=== PATIENT | male | born 1955 | race Caucasian/White ===

== ENCOUNTER 2017-08-21 08:30 | Day surgery (SDC) | payer BC ==
[~2017-08-21] VITALS: Ht 190.5 cm; Wt 137.8 kg
[~2017-08-21 08:30] MED LIST: ASPI81CH; Coumadin5 MG PO; FENO160; LOSA50; NAPR500; Omeprazole20 M1; REPATHA SU140 MG/1 M; VASCEPA1 GM
== END 2017-08-21 10:33 | disposition home or self-care (01) ==
LOC: ORSCSDS 08:30
PROVIDERS: Surgery
PROC: 0DBH8ZX Excision of Cecum, Via Natural or Artificial Opening Endoscopic, Diagnostic (ICD-10-PCS; principal; 2017-08-21 09:45)
DX: Z12.11 Encounter for screening for malignant neoplasm of colon (principal); D12.0 Benign neoplasm of cecum; K57.30 Diverticulosis of large intestine without perforation or abscess without bleeding; Z86.010 Personal history of colon polyps; G47.30 Sleep apnea, unspecified; E66.9 Obesity, unspecified; Z68.41 Body mass index [BMI] 40.0-44.9, adult; Z79.82 Long term (current) use of aspirin; Z79.899 Other long term (current) drug therapy
CPT/HCPCS: 82947; 88305; J2250; J7120

== ENCOUNTER → 2021-07-02 | Outpatient (CLI) | payer OTHER ==
[~2021-07-02] MED LIST changes: +ALFU10; +LIVALO2 MG PO
== END | disposition home or self-care (01) ==
LOC: LAB SHORT 07:43 → LAB 07:43
DX: L82.1 Other seborrheic keratosis (principal)
CPT/HCPCS: 88305

== ENCOUNTER 2022-10-18 06:04 | Day surgery (SDC) | payer OTHER ==
[~2022-10-18] VITALS: Ht 190.5 cm; Wt 142.5 kg
[2022-10-18] MEDS ORDERED: CELE200 PO (06:55)
--- NOTE | 2022-10-18 07:46 | NUR ---
10/18/22 0746 Diya Talamantes ROPIVACAINE 0.5% 30 MLS MIXED W/ EPI 0.15 ML (1MG/ML) PER ORDER TO MAKE ROPIVACAINE 0.5% 1:200,000 FOR INJECTION AT OPSITE BY DR PERRY. 30 MLS INJECTED.
--- NOTE | 2022-10-18 09:32 | NUR ---
10/18/22 0932 Lucia Interiano O2 TRIAL AT 10L VIA FT 5 MINUTES AGO. SPO2 WAS 100%. SPO2 NOW STILL AT 100%. O2 TRIAL AT 5L.
--- NOTE | 2022-10-18 11:16 | NUR ---
10/18/22 1116 CRISTINA MEDINA PAIN 210 AT DISCHARGE. PT STATES VERY MANAGIBLE.
== END 2022-10-18 11:12 | disposition home or self-care (01) ==
LOC: ORSCSDS 06:04
PROVIDERS: Podiatrist Foot & Ankle Surgery
PROC: 0SGK04Z Fusion of Right Tarsometatarsal Joint with Internal Fixation Device, Open Approach (ICD-10-PCS; principal; 2022-10-18 07:30)
DX: M19.071 Primary osteoarthritis, right ankle and foot (principal); I10 Essential (primary) hypertension; E78.5 Hyperlipidemia, unspecified; G47.33 Obstructive sleep apnea (adult) (pediatric); E11.9 Type 2 diabetes mellitus without complications; Z79.899 Other long term (current) drug therapy; Z79.82 Long term (current) use of aspirin; E66.9 Obesity, unspecified; Z68.39 Body mass index [BMI] 39.0-39.9, adult
CPT/HCPCS: 82947; A9270; C1713; C1734; J0171; J0690; J1100; J1885; J2250; J2405; J2704; J2795; J3010; J7120

== ENCOUNTER 2023-06-27 08:16 | Day surgery (SDC) | payer MEDICARE, BC ==
[~2023-06-27] VITALS: Ht 190.5 cm; Wt 139.0 kg
[~2023-06-27 08:16] MED LIST changes: +CELE200 PO
[2023-06-27] MEDS ORDERED: Amlodipine Bes2.5 MG (08:37)
[2023-06-27] MEDS ORDERED: FENO48 (08:37)
[2023-06-27] MEDS ORDERED: EZET10 (08:37)
[2023-06-27] MEDS ORDERED: OXYB5 (08:38)
[2023-06-27] MEDS ORDERED: IRBE75 (08:38)
[2023-06-27] MEDS ORDERED: OMEP20ER (08:38)
[2023-06-27 10:01] VITALS: BP 111/70
== END 2023-06-27 10:10 | disposition home or self-care (01) ==
LOC: ORSCSDS 08:16
PROVIDERS: Surgery
PROC: 0DBH8ZX Excision of Cecum, Via Natural or Artificial Opening Endoscopic, Diagnostic (ICD-10-PCS; principal; 2023-06-27 09:30)
DX: Z12.11 Encounter for screening for malignant neoplasm of colon (principal); Z86.010 Personal history of colon polyps; Z80.0 Family history of malignant neoplasm of digestive organs; D12.0 Benign neoplasm of cecum; K57.30 Diverticulosis of large intestine without perforation or abscess without bleeding; Z86.718 Personal history of other venous thrombosis and embolism; K21.9 Gastro-esophageal reflux disease without esophagitis; I10 Essential (primary) hypertension; G47.33 Obstructive sleep apnea (adult) (pediatric); E11.9 Type 2 diabetes mellitus without complications; E66.9 Obesity, unspecified; Z68.38 Body mass index [BMI] 38.0-38.9, adult; Z79.899 Other long term (current) drug therapy
CPT/HCPCS: 82947; 88305; J2704; J7120